=== PATIENT | male | born 1955 | race Caucasian/White ===

== ENCOUNTER → 2017-11-08 | Outpatient (CLI) | payer OTHER ==
[~2017-11-08] MED LIST: ALDACTONE25 MG PO; ASPIRIN325 PO; BACTROBAN CREAM30 G1 TOP; COREG6.25 MG PO; COZAAR 25 MG TA25 MG PO; DEMADEX20 MG PO; EFFIENT10 MG PO; FISHOIL PO; GLUCOTROL5 MG PO; KEFLEX500 MG PO; LIPITOR80 MG PO; LISINOPRIL10 MG PO; LISINOPRIL5 MG PO; LOPRESSOR25 PO; MICROZIDE12.5 MG PO; NORCO 5-325 TA1 EACH PO; NOT SURE OF MEDS; OMEGA-31000 M1 PO; PHENERGAN 25 MG25 M1 PO; PREDNISONE 20 M20 MG PO; TRIAMCINOLONE A80 G2 TOP; TUMS PO; ZOCOR80 MG PO; ZOFRAN ODT4 MG PO
--- NOTE | ~2017-11-08 | 2DMMODE ---
[facility] [address] [place] [address] 2 D/M-MODE ECHOCARDIOGRAM Name: ISABEL FULLER Room #: REG [facility]#: [id number] Admission: 11/08/17 Attend Phys: Jose Luis Rascon Discharge: Date of : 55 Date of Service: 11/08/17 1710 Report #: [id number] THIS REPORT FOR: //name// APPROVED REPORT Study performed: 11/08/2017 15:17:03 EXAM: Comprehensive 2D, Doppler, and color-flow Echocardiogram Patient Location: Out-Patient Status: routine BSA: 1.57 HR: 81 bpm BP: 124/74 mmHg Rhythm: NSR Other Information Study Quality: Adequate Indications CAD, STENT, ISCM, COPD. 2D Dimensions RVDd: 37.56 mm LVEF(%): 25.12 (>50%) IVSd: 7.36 (7-11mm) LVOT Diam: 18.97 (18-24mm) LVDd: 50.11 mm PWd: 7.56 (7-11mm) LVDs: 44.28 (25-40mm) Aortic Root: 28.57 mm Ordoñez's LVEF: 25.12 % Volumes Left Atrial Volume (Systole) Single Plane 4CH: 37.92 mL Single Plane 2CH: 51.46 mL LA ESV Index: 30.00 mL/m2 Aortic Valve AoV Peak Grady.: 1.27 m/s AO Peak Gr.: 6.47 mmHg LVOT Max P.27 mmHg LVOT Max V: 0.75 m/s NATACHA Vmax: 1.68 cm2 Mitral Valve E/A Ratio: 1.2 MV Decel. Time: 134.98 ms [facility] [place] [address] 2 D/M-MODE ECHOCARDIOGRAM Name: ISABEL FULLER Room #: [facility]#: [id number] Admission: 11/08/17 Attend Phys: Jose Luis Rascon Discharge: Date of : 55 Date of Service: 11/08/17 1710 Report #: [id number] MV E Max Grady.: 0.81 m/s MV A Grady.: 0.67 m/s MV PHT: 39.15 ms IVRT: 106.11 ms Pulmonary Valve PV Peak Grady.: 0.90 m/s PV Peak Gr.: 3.22 mmHg Pulmonary Vein P Vein S: 0.61 m/s P Vein D: 0.51 m/s P Vein S/D Ratio: 1.20 Tricuspid Valve TR Peak Grady.: 1.91 m/s RAP Estimate: 5.00 mmHg TR Peak Gr.: 14.64 mmHg PA Pressure: 20.00 mmHg Left Ventricle The left ventricle is normal size. There is normal left ventricular wall thickness. Left ventricular systolic function is severely decreased. LVEF is 25%. Anterolateral, apical, and inferolateral hypokinesis Grade II - pseudonormal filling dynamics. Right Ventricle The right ventricle is normal size. The right ventricular systolic function is normal. Atria The left atrium size is normal. The right atrium size is normal. Aortic Valve Aortic valve leaflets are mildly calcified No aortic regurgitation. There is no aortic valvular stenosis. Mitral Valve Mitral valve leaflets are mildly thickened. Trace mitral regurgitation. Tricuspid Valve The tricuspid valve is normal in structure. Trace tricuspid regurgitation. Estimated PAP is 20mmHg. Pulmonic Valve The pulmonary valve is normal in structure. There is no pulmonic [facility] [address] [place] [address] 2 D/M-MODE ECHOCARDIOGRAM Name: JONNYISABEL ABARCA EDITH Room #: REG [place]#: [id number] Admission: 11/08/17 Attend Phys: Jose Luis Rascon Discharge: Date of : 55 Date of Service: 11/08/17 1710 Report #: [id number] valvular regurgitation. Great Vessels The aortic root is normal in size. IVC is normal in size and collapses >50% with inspiration. Pericardium There is no pericardial effusion. <Conclusion> Left ventricular systolic function is severely decreased. LVEF is 25%. Anterolateral, apical, and inferolateral hypokinesis Grade II - pseudonormal filling dynamics. Aortic valve leaflets are mildly calcified. No aortic regurgitation or stenosis. Mitral valve leaflets are mildly thickened. Trace mitral regurgitation. Pulmonary artery pressure could not be reliably ascertained There is no pericardial effusion. <ELECTRONICALLY SIGNED> By: Awais Bruno MD, [facility] 11/08/171709 09 09 Awais Bruno MD, FACC /INF
== END ==
LOC: CV 06:27
DX: I25.10 Atherosclerotic heart disease of native coronary artery without angina pectoris (principal); J44.9 Chronic obstructive pulmonary disease, unspecified; I25.5 Ischemic cardiomyopathy; I50.9 Heart failure, unspecified; I77.9 Disorder of arteries and arterioles, unspecified; I65.29 Occlusion and stenosis of unspecified carotid artery; Z95.5 Presence of coronary angioplasty implant and graft

== ENCOUNTER 2017-11-18 06:37 | Observation (INO) | payer OTHER ==
[~2017-11-18] VITALS: Ht 167.6 cm; Wt 51.7 kg
--- NOTE | ~2017-11-18 | P ---
[facility] [address] [place] [address] PROCEDURE REPORT Name: ISABEL FULLER Room #: 210-P [facility] M.R.#: [id number] Admission: 11/18/17 Attend Phys: Jose Luis Rascon MD Discharge: Date of : 55 Report #: [id number] THIS REPORT FOR: //name// CC: Ulises Rascon [facility] PROCEDURE PERFORMED: ICD implantation. PREOPERATIVE DIAGNOSIS: Ischemic cardiomyopathy. POSTOPERATIVE DIAGNOSIS: Ischemic cardiomyopathy. HISTORY OF PRESENT ILLNESS: The patient is a 62-year-old with history of coronary artery disease, status post DC with a known ischemic cardiomyopathy, who has been on standard cardiac medications for a period of 3 months and EF remains at 35%. He is here for ICD implantation for primary prevention of sudden cardiac . ANESTHESIA: The patient underwent MAC anesthesia with no anesthesia related complications. PROCEDURE: The patient underwent informed consent where we discussed the details of the procedure including the risks, which include, but are not limited to bleeding, infection, vascular damage, cardiac perforation, and pneumothorax. He understood these risks and was willing to proceed. As such, the patient was brought to the EP laboratory in a fasting and sedated state and prepped and draped in a sterile fashion. He received IV antibiotics and underwent a venogram showing patency of the left axillary vein. Next, 30 mL of lidocaine was injected below the level of the left clavicle, incision was made and a pocket was created over the prepectoral fascia and access was obtained once the left axillary vein using the extrathoracic approach. A sheath was positioned using the modified Seldinger technique. Next, under fluoroscopy, an ICD lead was positioned into the right ventricular apex with adequate pacing and sensing thresholds. The lead was sutured to the prepectoral fascia. Pocket was irrigated with vancomycin, the device was connected and tested and found to be functioning normally. The pocket was then closed in 3 layers using 2-0 for the deep layer, 3-0 for the middle layer and 4-0 for the subcuticular layer. Surgical glue was placed at the outer skin layer. The patient awoke neurologically and hemodynamically intact with no complications and 10 mL of blood loss. The implanted device was a Biotronik model #785324, serial #[id number]. The RV lead was a Biotronik model #437345, serial #[id number]. This was a 59 cm single coil lead. This is an MRI compatible ICD. [address] [address] PROCEDURE REPORT Name: ISABEL FULLER Room #: 210-P [facility] [place]#: [id number] Admission: 11/18/17 Attend Phys: Jose Luis Rascon MD Discharge: Date of : 55 Report #: [id number] The RV lead demonstrated an R-wave of 8.9 millivolts, pacing threshold of 1.2 volts at 0.4 milliseconds, a pacing impedance of 613 ohms and a shock impedance of 73 ohms. The device was programmed to the VVI 40 mode with the VT zone programmed from 180-220 beats per minute with ATP while charging followed by max output shocks. The VF zone was programmed to greater than 220 beats per minute with ATP while charging followed by max output shocks. CONCLUSIONS: 1. Successful implantation of an MRI compatible single chamber ICD. 2. Satisfactory right ventricular pacing and sensing thresholds. <ELECTRONICALLY SIGNED> By: Jose Luis Rascon MD 11/18/17 1642 1005 1047 Jose Luis Rascon MD /nt
--- NOTE | ~2017-11-18 | D ---
[facility] [address] [place] [address] DISCHARGE SUMMARY Name: ISABEL FULLER Room #: 210-P [facility] Cecelia Malik#: [id number] Admission: 11/18/17 Attend Phys: Jose Luis Rascon MD Discharge: 11/19/17 Date of : 55 Report #: [id number] THIS REPORT FOR: //name// CC: Ulises Rascon [facility] DISCHARGE DIAGNOSIS: Ischemic cardiomyopathy. PROCEDURES PERFORMED: ICD implantation. HISTORY: The patient is a 62-year-old male with a history of an ischemic cardiomyopathy, has been on optimal medical therapy for 3 months and has an EF of less than 35%. As such, he was here for ICD implantation for primary prevention of sudden cardiac . He underwent a Biotronik single-chamber, single-coil ICD implant without complications. HOSPITAL COURSE: The patient was monitored overnight and did well. The following day, a chest x-ray showed stable lead position with no pneumothorax and his device interrogation demonstrated normal device function. On telemetry, he maintained sinus rhythm. He denied any problems with chest pain or shortness of breath, fevers or chills. On physical exam, he was in no acute distress. Heart was regular rate and rhythm with no murmurs, rubs, gallops. Lungs were clear bilaterally and his incision was healing nicely with no signs of ecchymosis or hematoma. As such, he was deemed stable for discharge home to continue on his same cardiac medications. DISCHARGE INSTRUCTIONS: Reviewed and he will follow up in 7-10 days for a site check. <ELECTRONICALLY SIGNED> By: Jose Luis Rascon MD 11/29/17 1622 0938 0951 Jose Luis Rascon MD /nt
[~2017-11-18 06:37] MED LIST changes: -COZAAR 25 MG TA25 MG PO; -GLUCOTROL5 MG PO; -PHENERGAN 25 MG25 M1 PO; -ZOFRAN ODT4 MG PO
[2017-11-18 07:09] LABS: ABSOLUTE NEUTROPHILS 4.8 thou/uL (1.4-8.2); BASOPHILS 1.4 % (0.0-2.0); EOSINOPHILS 3.8 % (0.0-3.0); HEMATOCRIT 39.8 % (42.0-52.0); HEMOGLOBIN 13.4 gm/dL (14.0-18.0); LYMPHOCYTES 17.2 % (24.0-44.0); MCH 28.6 pg (26.0-34.0); MCHC 33.8 g/dL (28.0-37.0); MCV 84.7 fL (80.0-100.0); MONOCYTES 10.6 % (1.0-8.0); PLATELET COUNT 186 thou/uL (150-400); RDW 14.9 % (10.5-14.5); WBC 7.1 thou/uL (4.0-11.0)
[2017-11-18 07:11] VITALS: BP 89/53
[2017-11-18 07:19] LABS: CALCIUM 9.8 mg/dL (8.5-10.1); CREATININE 1.5 mg/dL (0.7-1.3); POTASSIUM 4.9 mmol/L (3.5-5.1)
[2017-11-18 07:21] LABS: PROTIME 10.1 Seconds (9.3-11.4)
[2017-11-18 07:25] LABS: ALBUMIN 3.4 g/dL (3.4-5.0); TOTAL BILIRUBIN 0.8 mg/dL (<0.1-1.0); TOTAL PROTEIN 7.2 g/dL (6.4-8.2)
[2017-11-18 16:50] VITALS: BP 104/69
[2017-11-18 20:15] VITALS: BP 99/56
[2017-11-19 04:30] VITALS: BP 96/58
[2017-11-19 07:05] VITALS: BP 93/57
[2017-11-19 10:49] VITALS: BP 93/57
== END 2017-11-19 13:15 | disposition home or self-care (01) ==
LOC: CATH 06:37 → 2N 11:54 → CATH 14:19 → ENTRNSPT 11-19 12:49 → EDTRNSPTSTS 11-19 12:51 → 2N 11-19 13:15
PROVIDERS: Internal Medicine Cardiovascular Disease
DX: I25.5 Ischemic cardiomyopathy (principal); I50.9 Heart failure, unspecified; I11.0 Hypertensive heart disease with heart failure; J43.9 Emphysema, unspecified; I25.10 Atherosclerotic heart disease of native coronary artery without angina pectoris; I25.2 Old myocardial infarction; E78.5 Hyperlipidemia, unspecified; E78.00 Pure hypercholesterolemia, unspecified; F17.210 Nicotine dependence, cigarettes, uncomplicated

== ENCOUNTER 2017-12-28 23:13 | Inpatient (IN) | payer OTHER ==
[~2017-12-28] VITALS: Ht 167.6 cm; Wt 50.8 kg
--- NOTE | ~2017-12-28 | EKG ---
[address] [place] [address] ELECTROCARDIOGRAM REPORT Name: JONNYISABEL ABARCA ALAN Room #: 170-2 ADM IN M.R.#: [id number] Admission: 12/29/17 Attend Phys: Tony Hernandez DO Discharge: Date of : 55 Report #: [id number] THIS REPORT FOR: //name// [facility] ED Test Date: 2017-12-28 Test Time: 23:25:56 Pat Name: ISABEL FULLER Department: Room: 170 Gender: M Curriculum Writer: MARILU : 1955 Requested By: Doyle Castro Order Number: [id number] MD: Awais Bruno Measurements Intervals [place] Rate: 72 P: 65 ME: 143 QRS: -160 QRSD: 150 T: 48 QT: 437 QTc: 479 Interpretive Statements Sinus rhythm Atrial premature complex Probable left atrial enlargement RBBB and LPFB Possible inferior infarct Compared to ECG 10/06/2017 07:42:16 Atrial premature complex(es) now present Electronically Signed On 12-29-2017 7:58:10 WALKING DRAGLINE OPERATOR by Awais Bruno [email or web address] <ELECTRONICALLY SIGNED> By: Awais Bruno MD, [facility] 12/29/17 0758 2325 2325 Awais Bruno MD, [facility] /EPI
--- NOTE | ~2017-12-28 | 2DMMODE ---
[facility] [place] [address] 2 D/M-MODE ECHOCARDIOGRAM Name: JONNYISABEL EDITH Room #: 170-2 ADM IN ..#: [id number] Admission: 12/29/17 Attend Phys: Tony Hernandez, Discharge: Date of : 55 Date of Service: 12/29/17 1047 Report #: [id number] THIS REPORT FOR: //name// APPROVED REPORT Study performed: 12/29/2017 10:06:53 EXAM: Limited 2D, Doppler, and color-flow Echocardiogram Patient Location: ER Status: routine BSA: 1.57 HR: 64 bpm BP: 133/88 mmHg Other Information Study Quality: Adequate Indications Limited follow up echo for Dizziness, near syncope. Hx: NISCM, NH, stent, ICD, CVA, COPD, cont. tobacco abuse. (complete echo done 11/2017) 2D Dimensions LVEF(%): 32.88 (>50%) IVSd: 7.55 (7-11mm) LVDd: 48.72 mm PWd: 9.18 (7-11mm) LVDs: 41.11 (25-40mm) Ordoñez's LVEF: 32.88 % Aortic Valve AoV Peak Grady.: 1.14 m/s AO Peak Gr.: 5.24 mmHg Tricuspid Valve TR Peak Grady.: 2.61 m/s RAP Estimate: 5.00 mmHg TR Peak Gr.: 27.21 mmHg Left Ventricle The left ventricle is normal size. Regional wall motion abnormalities are noted. There is normal left ventricular wall thickness. Left ventricular systolic function is severely decreased. LVEF is 25%. Right Ventricle [facility] [address] [place] [address] 2 D/M-MODE ECHOCARDIOGRAM Name: ISABEL FULLER Room #: 170-2 ADM IN .R.#: [id number] Admission: 12/29/17 Attend Phys: Tony Hernandez, Discharge: Date of : 55 Date of Service: 12/29/17 1047 Report #: [id number] The right ventricle is normal size. The right ventricular systolic function is low normal. Atria The left atrium size is normal. The right atrium size is normal. Device lead is present in the right ventricle. Aortic Valve Aortic valve is calcified. Trace aortic regurgitation. There is no aortic valvular stenosis. Mitral Valve Mitral valve leaflets are mildly thickened. Trace mitral regurgitation. Tricuspid Valve The tricuspid valve is normal in structure. Mild tricuspid regurgitation. Estimated PAP is 30-35mmHg. Pulmonic Valve Pulmonic valve is not well visualized. Great Vessels IVC is normal in size and collapses >50% with inspiration. Pericardium There is no pericardial effusion. <Conclusion> The tricuspid valve is normal in structure. The left ventricle is normal size. Regional wall motion abnormalities are noted. LVEF is 25%. The right ventricle is normal size. The right atrium size is normal. Device lead is present in the right ventricle. Aortic valve is calcified. Trace aortic regurgitation. There is no aortic valvular stenosis. Mitral valve leaflets are mildly thickened. Trace mitral regurgitation. The tricuspid valve is normal in structure. Mild tricuspid regurgitation. Estimated PAP is 30-35mmHg. [facility] [address] [place] [address] 2 D/M-MODE ECHOCARDIOGRAM Name: ISABEL FULLER Room #: 170-2 ADM IN .R.#: [id number] Admission: 12/29/17 Attend Phys: Tony Hernandez, Discharge: Date of : 55 Date of Service: 12/29/17 104 Report #: [id number] Pulmonic valve is not well visualized. There is no pericardial effusion. <ELECTRONICALLY SIGNED> By: Terry Vernon MD 12/29/17 1047 46 46 Terry Vernon MD /INF
[2017-12-28 23:16] VITALS: BP 142/80
[2017-12-28 23:52] LABS: ABSOLUTE NEUTROPHILS 8.9 thou/uL (1.4-8.2); BASOPHILS 0.7 % (0.0-2.0); EOSINOPHILS 2.2 % (0.0-3.0); HEMATOCRIT 44.4 % (42.0-52.0); HEMOGLOBIN 15.2 gm/dL (14.0-18.0); LYMPHOCYTES 8.8 % (24.0-44.0); MCH 29.9 pg (26.0-34.0); MCHC 34.2 g/dL (28.0-37.0); MCV 87.4 fL (80.0-100.0); MONOCYTES 10.4 % (1.0-8.0); PLATELET COUNT 179 thou/uL (150-400); POLYS 77.9 % (36.0-66.0); RBC 5.07 mil/uL (4.50-6.00); RDW 14.8 % (10.5-14.5); WBC 11.4 thou/uL (4.0-11.0)
[2017-12-28 23:54] LABS: ANION GAP 6 mmol/L (7-16); BUN 30 mg/dL (7-18); CALCIUM 9.7 mg/dL (8.5-10.1); CHLORIDE 97 mmol/L (98-107); CO2 29 mmol/L (21-32); CREATININE 2.1 mg/dL (0.7-1.3); GLUCOSE 345 mg/dL (74-106); SODIUM 132 mmol/L (136-145)
[2017-12-29 00:02] LABS: ALBUMIN 3.8 g/dL (3.4-5.0); LIPASE 171 U/L (73-393); SGOT 15 U/L (15-37); SGPT 22 U/L (30-65); TOTAL BILIRUBIN 0.9 mg/dL (<0.1-1.0); TOTAL PROTEIN 8.2 g/dL (6.4-8.2); TROPONIN-I < 0.04 ng/mL (<0.06)
[2017-12-29 00:27] LABS: URINE BILIRUBIN NEGATIVE (Negative); URINE BLOOD TRACE (Negative); URINE CLARITY CLEAR; URINE COLOR YELLOW; URINE GLUCOSE-RANDOM* 3+ (Negative); URINE KETONES NEGATIVE (Negative); URINE LEUKOCYTES-REFLEX NEGATIVE (Negative); URINE NITRITE-REFLEX NEGATIVE (Negative); URINE PROTEIN (DIPSTICK) 1+ (Negative)
[2017-12-29 00:38] LABS: BACTERIA-REFLEX None Seen /HPF (None Seen); CASTS None Seen /LPF (None Seen); CRYSTALS None Seen /LPF (None Seen); SQUAMOUS 0-3 Few /LPF (0-3); URINE RBC 0-2 Rare /HPF (0-2); URINE WBC-REFLEX 0-5 Rare /HPF (0-5)
[2017-12-29 01:14] VITALS: BP 152/87
[2017-12-29 09:24] VITALS: BP 132/84
[2017-12-29 16:27] VITALS: BP 119/76
[2017-12-29 20:03] VITALS: BP 118/76
[2017-12-30 04:00] VITALS: BP 116/76
[2017-12-30 06:34] LABS: HEMATOCRIT 37.2 % (42.0-52.0); MCH 30.2 pg (26.0-34.0); MCHC 34.5 g/dL (28.0-37.0); MCV 87.6 fL (80.0-100.0); PLATELET COUNT 148 thou/uL (150-400); RBC 4.25 mil/uL (4.50-6.00); RDW 14.2 % (10.5-14.5); WBC 9.2 thou/uL (4.0-11.0)
[2017-12-30 06:39] LABS: HEMOGLOBIN 12.8 gm/dL (14.0-18.0)
[2017-12-30 06:51] LABS: ALBUMIN 2.7 g/dL (3.4-5.0); CALCIUM 8.8 mg/dL (8.5-10.1); CREATININE 1.5 mg/dL (0.7-1.3); POTASSIUM 4.4 mmol/L (3.5-5.1); TOTAL BILIRUBIN 0.9 mg/dL (<0.1-1.0); TOTAL PROTEIN 6.3 g/dL (6.4-8.2)
[2017-12-30 07:35] VITALS: BP 120/77
[2017-12-30 09:31] LABS: ABSOLUTE NEUTROPHILS 6.8 thou/uL (1.4-8.2); PLATELET ESTIMATE NORMAL
[2017-12-30] MEDS ORDERED: GLUCOTROL5 MG PO (09:57)
[2017-12-30 10:56] VITALS: BP 120/77
[2017-12-31] MEDS ORDERED: PHENERGAN 25 MG25 M1 PO (11:33)
[2017-12-31] MEDS ORDERED: ZOFRAN ODT4 MG PO (11:33)
== END 2017-12-30 12:12 | disposition home or self-care (01) | DRG 682 ==
LOC: ER 23:13 → 4E 12-29 01:16 → EROBS 12-29 01:16 → ER 12-29 01:16 → 4E 12-29 15:33 → ENTRNSPT 12-30 12:05 → EDTRNSPTSTS 12-30 12:09 → 4E 12-30 12:12
PROVIDERS: Emergency Medicine; Hospitalist; Nurse Practitioner Family
DX: N17.9 Acute kidney failure, unspecified (principal); E43 Unspecified severe protein-calorie malnutrition; E78.00 Pure hypercholesterolemia, unspecified; F17.200 Nicotine dependence, unspecified, uncomplicated; J44.9 Chronic obstructive pulmonary disease, unspecified; M19.90 Unspecified osteoarthritis, unspecified site; I25.5 Ischemic cardiomyopathy; E11.65 Type 2 diabetes mellitus with hyperglycemia; I25.10 Atherosclerotic heart disease of native coronary artery without angina pectoris; R55 Syncope and collapse; N18.9 Chronic kidney disease, unspecified; I12.9 Hypertensive chronic kidney disease with stage 1 through stage 4 chronic kidney disease, or unspecified chronic kidney disease; I25.2 Old myocardial infarction; Z79.899 Other long term (current) drug therapy; Z95.5 Presence of coronary angioplasty implant and graft
CPT/HCPCS: 10183

== ENCOUNTER 2017-12-31 10:10 | Emergency (ER) | payer OTHER ==
[~2017-12-31] VITALS: Ht 170.2 cm; Wt 70.8 kg
--- NOTE | ~2017-12-31 | EKG ---
[address] [address] ELECTROCARDIOGRAM REPORT Name: JONNYISABEL GARCIAN Room #: [facility]P [facility] [id number] Admission: 12/31/17 Attend Phys: Discharge: 12/31/17 Date of : 55 Report #: [id number] THIS REPORT FOR: //name// [facility] ED Test Date: 2017-12-31 Test Time: 10:31:47 Pat Name: ISABEL FULLER Department: Room: Gender: M Exterior Door Installer: CARLOS : 1955 Requested By: Minnie Obrien Order Number: [id number] MD: Jose Luis Rascon Measurements Intervals [place] Rate: 67 P: 63 [place]: 140 QRS: -176 QRSD: 145 T: 47 QT: 447 QTc: 472 Interpretive Statements Sinus rhythm Probable left atrial enlargement RBBB and LPFB Inferior infarct, old Compared to ECG 12/28/2017 23:25:56 Atrial premature complex(es) no longer present Myocardial infarct finding still present Electronically Signed On 01-01-2018 13:19:54 INSTRUCTOR MODELING by Jose Luis Rascon [email or web address] <ELECTRONICALLY SIGNED> By: Jose Luis Rascon MD 01/01/18 1319 1031 1031 Jose Luis Rascon MD /EPI
[~2017-12-31 10:10] MED LIST changes: +GLUCOTROL5 MG PO
[2017-12-31 11:20] LABS: ABSOLUTE NEUTROPHILS 8.4 thou/uL (1.4-8.2); BASOPHILS 0.6 % (0.0-2.0); EOSINOPHILS 1.9 % (0.0-3.0); HEMATOCRIT 40.1 % (42.0-52.0); HEMOGLOBIN 13.8 gm/dL (14.0-18.0); LYMPHOCYTES 10.2 % (24.0-44.0); MCH 30.3 pg (26.0-34.0); MCHC 34.4 g/dL (28.0-37.0); MONOCYTES 9.4 % (1.0-8.0); PLATELET COUNT 182 thou/uL (150-400); POLYS 77.9 % (36.0-66.0); RBC 4.55 mil/uL (4.50-6.00); RDW 14.3 % (10.5-14.5); WBC 10.7 thou/uL (4.0-11.0)
[2017-12-31 11:26] LABS: CALCIUM 10.3 mg/dL (8.5-10.1); CREATININE 1.6 mg/dL (0.7-1.3); POTASSIUM 4.4 mmol/L (3.5-5.1)
[2017-12-31 11:32] LABS: ALBUMIN 3.5 g/dL (3.4-5.0); DIRECT BILIRUBIN 0.2 mg/dL (<0.1-0.3); TOTAL PROTEIN 7.9 g/dL (6.4-8.2)
[2017-12-31] MEDS ORDERED: ZOFRAN ODT4 MG PO (11:33)
[2017-12-31] MEDS ORDERED: PHENERGAN 25 MG25 M1 PO (11:33)
[2017-12-31 12:04] VITALS: BP 137/92
[2017-12-31 12:17] LABS: URINE BILIRUBIN NEGATIVE (Negative); URINE BLOOD NEGATIVE (Negative); URINE CLARITY CLEAR; URINE COLOR YELLOW; URINE GLUCOSE-RANDOM* TRACE (Negative); URINE KETONES NEGATIVE (Negative); URINE LEUKOCYTES NEGATIVE (Negative); URINE NITRITE NEGATIVE (Negative); URINE PROTEIN (DIPSTICK) 1+ (Negative); URINE UROBILINOGEN 0.2 E.U./dl (0.2-1.0)
[2017-12-31 12:25] LABS: BACTERIA 1-9 Few /HPF (None Seen); CASTS None Seen /LPF (None Seen); CRYSTALS None Seen /LPF (None Seen); SQUAMOUS 0-3 Few /LPF (0-3); URINE RBC None Seen /HPF (0-2); URINE WBC None Seen /HPF (0-5)
== END 2017-12-31 12:08 | disposition home or self-care (01) ==
LOC: ER 10:10
PROVIDERS: Emergency Medicine
DX: R11.0 Nausea (principal); E11.9 Type 2 diabetes mellitus without complications; F17.210 Nicotine dependence, cigarettes, uncomplicated; Z95.0 Presence of cardiac pacemaker

== ENCOUNTER 2018-03-30 08:54 | Inpatient (IN) | payer OTHER ==
[2018-03-30] VITALS (7 sets, daily range): BP systolic 88–112; BP diastolic 60–73
[~2018-03-30] VITALS: Ht 167.6 cm; Wt 49.9 kg
--- NOTE | ~2018-03-30 | HC ---
[facility] [address] [place] [address] CONSULTATION Name: ISABEL FULELR Room #: 209-P [facility] IN .R.#: [id number] Admission: 03/30/18 Attend Phys: Tavo Harden MD Discharge: 03/31/18 Date of : 55 Report #: [id number] THIS REPORT FOR: //name// CC: LUIGI physician/PCP Ulises LOZADA PCP DATE OF SERVICE: 03/30/2018 HISTORY OF PRESENT ILLNESS: The patient is a 62-year-old male well known to myself, admitted with hypotension, lightheadedness and near syncopal episodes. Unfortunately, he has evidence of severe grieving process over the of his brother and has very little p.o. intake. He has ischemic cardiomyopathy with ejection fraction 20-25% and has had an ICD pacer implant. That was done in November of this year. The device had been functioning normally. It was interrogated and I am looking for that report. He has been compliant with the medications, which include afterload reducers, diuretics including Demadex, Aldactone, lisinopril, fish oil, atorvastatin, calcium carbonate, carvedilol 12.5 b.i.d. So, it is not surprising with his hypovolemia and his weight loss that he is now hypotensive. I suspect this is more the etiology of why this is occurring. His creatinine is up to 1.7. His BUN is also elevated. His H and H looks to be contracted. There is a white count of 17,000. PAST MEDICAL HISTORY: Positive for ischemic cardiomyopathy, anterior wall infarct in 2001 with an LAD stent, RCA stent in 2009. He has had a CVA. He has had left frontotemporal penumbra. He has had a carotid artery dissection in 10/2014. He has had remote right frontal and left lacunar infarcts, hypertension, hypercholesterolemia, alcohol abuse in the past, tobacco use, peripheral vascular disease. Last catheterization was 10/2017, defibrillator and also prior leg surgery. FAMILY HISTORY: Positive for father with premature coronary artery disease. Mother had breast cancer. SOCIAL HISTORY: He lives independently. He recently lost his brother. Moderately, he has been alcohol and tobacco user. REVIEW OF SYSTEMS: Essentially negative except for some nocturia. He was initially hypotensive. PHYSICAL EXAMINATION: GENERAL: Alert. VITAL SIGNS: Blood pressure has improved. Medication has been held. He is 100/70 with a pulse of 71. He originally was in the 80s in the Emergency Room, systolic. [address] [address] CONSULTATION Name: ISABEL FULLER Room #: 209-P [facility] IN ..#: [id number] Admission: 03/30/18 Attend Phys: Tavo Harden MD Discharge: 03/31/18 Date of : 55 Report #: [id number] HEENT: Eyes reveal xanthelasmas. Pharynx is clear. NECK: Shows preserved upstrokes without JVD or bruits. LUNGS: Prolonged expiratory phase, but clear. CARDIOVASCULAR: Distant heart tones, S1, S2. ABDOMEN: Soft, nontender. EXTREMITIES: Reveal no edema. Distal pulses are diminished. NEUROLOGIC: Nonfocal. SKIN: Warm and dry without xanthoma or ulcer. MUSCULOSKELETAL: Generalized arthritic changes. ASSESSMENT: 1. Recurrent syncopal hypotensive episodes, probably iatrogenic secondary to hypovolemia and continued medications. 2. Severe ischemic cardiomyopathy, functional class 1-2. 3. Coronary artery disease with multiple prior infarcts and stents as stated above. 4. Hypertension. 5. Hypercholesterolemia. 6. Chronic obstructive pulmonary disease, tobacco use. 7. History of ETOH use. RECOMMENDATIONS AND PLAN: I agree with holding current medications. I suspect these symptoms will resolve with time here. He did take his medicines this morning. We will interrogate the pacemaker. No real indication to repeat echo at this time. The cardiac catheterization in 10/2017 for clarification, 40% distal left main, LAD with one focal segment approaching 70%, in-stent diffuse stenosis and disease in the vessel attenuated at the apex. Circumflex was moderately diseased and then occluded proximally with some faint collateral filling left to left. The RCA was moderately diseased in the mid vessel and the distal third to 70% long area of narrowing giving rise to a diffusely diseased GRACE. None of this was really amenable to intervention. The ICD was then placed and would continue to treat this aggressively medically. We will slowly reinstitute his medications, diuretics and afterload reducers. We will certainly have further discussion with the patient about oral intake and nutritional aspects here. I do not recommend any further cardiovascular testing at this time and certainly we will arrange followup for him to see us in the clinic. By: [id number] Ulises Banda MD, FACC /nt
--- NOTE | ~2018-03-30 | EKG ---
[address] [place] [address] ELECTROCARDIOGRAM REPORT Name: ISABEL FULLER ALAN Room #: 209-P ADM IN M.R.#: [id number] Admission: 03/30/18 Attend Phys: Tavo Harden MD Discharge: Date of : 55 Report #: [id number] THIS REPORT FOR: //name// [facility] ED Test Date: 2018-03-30 Test Time: 09:24:27 Pat Name: ISABEL FULLER Department: Room: Gender: M Outcomes Analyst: rimma fuller rn : 1955 Requested By: Doyle Castro Order Number: [id number] MD: Awais Bruno Measurements Intervals [place] Rate: 64 P: 70 NV: 163 QRS: 148 QRSD: 149 T: 58 QT: 522 QTc: 539 Interpretive Statements Sinus rhythm Atrial premature complex RBBB and LPFB Compared to ECG 12/31/2017 10:31:47 Atrial premature complex(es) now present Electronically Signed On 03-31-2018 8:06:21 CDT by Awais Bruno [email or web address] <ELECTRONICALLY SIGNED> By: Awais Bruno MD, [facility] 03/31/18 0806 Awais Bruno MD, [facility] /EPI
[~2018-03-30 08:54] MED LIST changes: +PHENERGAN 25 MG25 M1 PO; +ZOFRAN ODT4 MG PO
[2018-03-30 09:12] LABS: HEMATOCRIT 47.3 % (42.0-52.0); MCH 30.1 pg (26.0-34.0); MCHC 33.7 g/dL (28.0-37.0); MCV 89.3 fL (80.0-100.0); RBC 5.3 mil/uL (4.50-6.00); RDW 13.6 % (10.5-14.5); WBC 17.2 thou/uL (4.0-11.0)
[2018-03-30 09:23] LABS: ANION GAP 8 mmol/L (7-16); BUN 42 mg/dL (7-18); CALCIUM 8.6 mg/dL (8.5-10.1); CHLORIDE 102 mmol/L (98-107); CO2 25 mmol/L (21-32); CREATININE 1.7 mg/dL (0.7-1.3); GLUCOSE 281 mg/dL (74-106); POTASSIUM 4.9 mmol/L (3.5-5.1)
[2018-03-30 09:25] LABS: SODIUM 135 mmol/L (136-145)
[2018-03-30 09:30] LABS: TROPONIN-I < 0.04 ng/mL (<0.06)
[2018-03-31 03:53] LABS: HEMATOCRIT 42.7 % (42.0-52.0); HEMOGLOBIN 14.2 gm/dL (14.0-18.0); MCH 29.7 pg (26.0-34.0); MCHC 33.3 g/dL (28.0-37.0); RBC 4.8 mil/uL (4.50-6.00); WBC 18.6 thou/uL (4.0-11.0)
[2018-03-31 04:25] LABS: CALCIUM 8.9 mg/dL (8.5-10.1); CREATININE 1.4 mg/dL (0.7-1.3); POTASSIUM 4.7 mmol/L (3.5-5.1)
[2018-03-31 04:52] VITALS: BP 124/84
[2018-03-31 07:34] VITALS: BP 122/80
[2018-03-31 11:55] VITALS: BP 117/74
[2018-03-31] MEDS ORDERED: COZAAR 25 MG TA25 MG PO (15:01)
[2018-03-31 15:36] VITALS: BP 117/74
[2018-03-31 15:45] VITALS: BP 117/74
[2018-03-31 16:11] VITALS: BP 117/74
== END 2018-03-31 16:03 | disposition home or self-care (01) | DRG 314 ==
LOC: ER 08:54 → 2N 10:45 → EROBS 10:45 → 2N 11:49 → ENTRNSPT 03-31 15:55 → 2N 03-31 16:03
PROVIDERS: Emergency Medicine; Hospitalist
DX: I95.9 Hypotension, unspecified (principal); N17.0 Acute kidney failure with tubular necrosis; I50.20 Unspecified systolic (congestive) heart failure; I13.0 Hypertensive heart and chronic kidney disease with heart failure and stage 1 through stage 4 chronic kidney disease, or unspecified chronic kidney disease; R79.89 Other specified abnormal findings of blood chemistry; I25.5 Ischemic cardiomyopathy; E78.00 Pure hypercholesterolemia, unspecified; I73.9 Peripheral vascular disease, unspecified; I25.10 Atherosclerotic heart disease of native coronary artery without angina pectoris; J44.9 Chronic obstructive pulmonary disease, unspecified; F17.210 Nicotine dependence, cigarettes, uncomplicated; I65.29 Occlusion and stenosis of unspecified carotid artery; N18.9 Chronic kidney disease, unspecified; Z86.73 Personal history of transient ischemic attack (TIA), and cerebral infarction without residual deficits; Z95.0 Presence of cardiac pacemaker; Z95.5 Presence of coronary angioplasty implant and graft; Z82.49 Family history of ischemic heart disease and other diseases of the circulatory system; Z80.3 Family history of malignant neoplasm of breast
CPT/HCPCS: 10081

== ENCOUNTER 2019-03-26 13:25 | Emergency (ER) | payer OTHER ==
[~2019-03-26] VITALS: Ht 167.6 cm; Wt 65.8 kg
[~2019-03-26 13:25] MED LIST changes: +COZAAR 25 MG TA25 MG PO
[2019-03-26 14:20] LABS: ABSOLUTE NEUTROPHILS 5.6 thou/uL (1.4-8.2); BASOPHILS 0.8 % (0.0-2.0); EOSINOPHILS 2.7 % (0.0-3.0); HEMATOCRIT 41.6 % (42.0-52.0); HEMOGLOBIN 13.7 gm/dL (14.0-18.0); MCH 29.5 pg (26.0-34.0); MCHC 32.9 g/dL (28.0-37.0); MCV 89.7 fL (80.0-100.0); MONOCYTES 7.6 % (1.0-8.0); PLATELET COUNT 156 thou/uL (150-400); POLYS 82.9 % (36.0-66.0); RBC 4.64 mil/uL (4.50-6.00); RDW 16.4 % (10.5-14.5); WBC 6.8 thou/uL (4.0-11.0)
[2019-03-26 14:29] LABS: CALCIUM 9.3 mg/dL (8.5-10.1); CREATININE 2.1 mg/dL (0.7-1.3); POTASSIUM 4.3 mmol/L (3.5-5.1)
[2019-03-26 14:35] LABS: ALBUMIN 3.1 g/dL (3.4-5.0); TOTAL PROTEIN 7.2 g/dL (6.4-8.2)
[2019-03-26] MEDS ORDERED: PREDNISONE 20 M20 MG PO (14:43)
[2019-03-26] MEDS ORDERED: TRIAMCINOLONE 080 G3 TOP (14:56)
[2019-03-26 15:05] VITALS: BP 122/86
== END 2019-03-26 15:06 | disposition home or self-care (01) ==
LOC: ER 13:25
PROVIDERS: Physician Assistant
DX: L53.9 Erythematous condition, unspecified (principal); F17.210 Nicotine dependence, cigarettes, uncomplicated

== ENCOUNTER → 2020-03-15 | Outpatient (CLI) | payer OTHER ==
[~2020-03-15] MED LIST changes: +TRIAMCINOLONE 080 G3 TOP
== END ==
LOC: SJCVC 15:02
DX: R94.31 Abnormal electrocardiogram [ECG] [EKG] (principal); I11.9 Hypertensive heart disease without heart failure; I45.10 Unspecified right bundle-branch block; I25.10 Atherosclerotic heart disease of native coronary artery without angina pectoris; E78.00 Pure hypercholesterolemia, unspecified; I25.5 Ischemic cardiomyopathy; R06.02 Shortness of breath; Z95.810 Presence of automatic (implantable) cardiac defibrillator

== ENCOUNTER → 2020-07-03 | Outpatient (CLI) | payer OTHER | LOC: SJCVCIMAG 08:41 | PROVIDERS: ATTEND Internal Medicine Cardiovascular Disease | DX: I08.3 Combined rheumatic disorders of mitral, aortic and tricuspid valves (principal); I31.3 Pericardial effusion (noninflammatory); I45.10 Unspecified right bundle-branch block; I49.3 Ventricular premature depolarization; I25.10 Atherosclerotic heart disease of native coronary artery without angina pectoris; I25.5 Ischemic cardiomyopathy; I11.0 Hypertensive heart disease with heart failure; I50.9 Heart failure, unspecified; E78.00 Pure hypercholesterolemia, unspecified; F17.210 Nicotine dependence, cigarettes, uncomplicated; Z95.810 Presence of automatic (implantable) cardiac defibrillator; Z79.899 Other long term (current) drug therapy ==

== ENCOUNTER 2020-07-19 13:16 | Emergency (ER) | payer OTHER ==
[~2020-07-19] VITALS: Ht 167.6 cm; Wt 48.5 kg
[2020-07-19 14:55] VITALS: BP 119/72
== END 2020-07-19 14:56 | disposition home or self-care (01) ==
LOC: ER 13:16
DX: S61.512A Laceration without foreign body of left wrist, initial encounter (principal); I25.2 Old myocardial infarction; E11.9 Type 2 diabetes mellitus without complications; F17.210 Nicotine dependence, cigarettes, uncomplicated; Z79.899 Other long term (current) drug therapy; Z95.0 Presence of cardiac pacemaker; W26.0XXA Contact with knife, initial encounter; Y93.89 Activity, other specified; Y92.89 Other specified places as the place of occurrence of the external cause; Y99.8 Other external cause status

== ENCOUNTER → 2021-01-02 | Outpatient (CLI) | payer OTHER | LOC: SJCVC 13:34 | PROVIDERS: ATTEND Internal Medicine Cardiovascular Disease | DX: R94.31 Abnormal electrocardiogram [ECG] [EKG] (principal); I45.2 Bifascicular block; I25.10 Atherosclerotic heart disease of native coronary artery without angina pectoris; E78.00 Pure hypercholesterolemia, unspecified; I73.9 Peripheral vascular disease, unspecified; I25.5 Ischemic cardiomyopathy; I11.0 Hypertensive heart disease with heart failure; I50.9 Heart failure, unspecified; J44.9 Chronic obstructive pulmonary disease, unspecified; F17.210 Nicotine dependence, cigarettes, uncomplicated; Z98.890 Other specified postprocedural states; Z95.810 Presence of automatic (implantable) cardiac defibrillator; Z79.82 Long term (current) use of aspirin; Z79.899 Other long term (current) drug therapy; Z82.49 Family history of ischemic heart disease and other diseases of the circulatory system ==

== ENCOUNTER → 2021-08-06 | Outpatient (CLI) | payer OTHER | LOC: SJCVCIMAG 08-04 08:14 | PROVIDERS: ATTEND Internal Medicine Cardiovascular Disease | DX: I08.3 Combined rheumatic disorders of mitral, aortic and tricuspid valves (principal); I25.10 Atherosclerotic heart disease of native coronary artery without angina pectoris; E78.00 Pure hypercholesterolemia, unspecified; I73.9 Peripheral vascular disease, unspecified; I11.0 Hypertensive heart disease with heart failure; I50.9 Heart failure, unspecified; I25.5 Ischemic cardiomyopathy; F17.210 Nicotine dependence, cigarettes, uncomplicated; J44.9 Chronic obstructive pulmonary disease, unspecified; I50.23 Acute on chronic systolic (congestive) heart failure; Z95.810 Presence of automatic (implantable) cardiac defibrillator; Z79.82 Long term (current) use of aspirin; Z79.899 Other long term (current) drug therapy; Z95.818 Presence of other cardiac implants and grafts ==

== ENCOUNTER 2021-09-20 14:15 | Emergency (ER) | payer OTHER ==
[~2021-09-20] VITALS: Ht 167.6 cm; Wt 48.5 kg
[2021-09-20 14:24] VITALS: BP 108/64
[2021-09-20] MEDS ORDERED: BENADRYL25 MG PO ×2 (15:49→17:48)
[2021-09-20] MEDS ORDERED: MEDROLDOSEPACK PO ×2 (15:49→17:48)
== END 2021-09-20 16:31 | disposition home or self-care (01) ==
LOC: ER 14:15
DX: L29.9 Pruritus, unspecified (principal); R21 Rash and other nonspecific skin eruption; E11.9 Type 2 diabetes mellitus without complications; F17.210 Nicotine dependence, cigarettes, uncomplicated; Z79.899 Other long term (current) drug therapy